=== PATIENT | male | born 2000 | race Caucasian/White ===

== ENCOUNTER 2024-04-04 06:32 | Emergency (ER) | payer OTHER, SELFPAY ==
[2024-04-04 06:44] VITALS: BP 109/64; PULSE 70; RESP 18; TEMP 36.6; O2SAT 99; BMI 25.2
--- NOTE | 2024-04-04 06:50 | ED.GENADULT ---
HPI - General Adult General Chief complaint: Back Pain/Injury Stated complaint: back pain Time Seen by Provider: 04/04/24 06:48 Source: patient, RN notes reviewed and old records reviewed Mode of arrival: ambulatory Limitations: no limitations History of Present Illness ED Provider: Howard [facility] narrative: Patient is a 24-year-old male presenting to the emergency department requesting clearance to return to work. Patient was seen elsewhere for a thoracic back strain several days ago, prescribed muscle relaxers. Patient states that since taking these medications his symptoms have fully resolved. Denies any current back pain. Denies any radiation of pain to extremities. Denies any saddle anesthesia or bowel or bladder incontinence. MD complaint: Medical clearance Associated symptoms: denies other symptoms Treatments prior to arrival: other Related Data Allergies Allergy/AdvReac Type Severity Reaction Status Date / Time No Known Allergies Allergy Verified 04/04/24 06:46 Review of Systems Review of Systems: As per HPI. Yes all other systems are reviewed and are negative Constitutional: Constitutional: Reports as per HPI Physical Exam ED Vital Signs: Vital Signs - 24 hr 04/04/24 06:44 Temperature 97.9 F Pulse Rate 70 Respiratory Rate 18 Blood Pressure 109/64 Pulse Oximetry 99 Oxygen Delivery Method Room Air BMI result Body Mass Index 25.2 Vital signs have been reviewed and appear to be correct. Blood pressure normal. Heart rate normal. Respiratory rate normal. Temperature normal. Oxygen saturation normal. Const General: cooperative, healthy appearing and no acute distress Orientation/consciousness: oriented to person, oriented to place, oriented to time and patient oriented x3 Limitations: no limitations HENMT Head: Yes normocephalic and Yes atraumatic Ears: external ears normal General nose exam: Normal external nose present Face and sinus: Yes face symmetric Mouth: oropharynx normal and moist mucous membranes Throat: Yes uvula midline Eyes Pupils: Equal, round and reactive pupils present Neck Neck: Yes normal visual inspection and Yes supple Resp Effort & Inspection: normal respiratory effort and able to speak in complete sentences Auscultation: clear to auscultation bilaterally Cardio Rate: regular rate Rhythm: regular rhythm Heart sounds: S1 normal heart sound present and S2 normal heart sound present GI Palpation (GI): Soft to palpation and nontender Auscultation: normoactive bowel sounds General: Yes no CVA tenderness Back/Spine/Pelvis Back: no CVA tenderness Thoracic/Lumbar Spine: thoracic and lumbar spine normal to inspection, thoraco-lumbar ROM normal, No pain with thoraco-lumbar ROM, No paraspinal muscle tenderness, No thoracic spinal tenderness and No lumbar spinal tenderness Skin General skin exam: elasticity normal and turgor normal Neuro General: oriented to person, oriented to place, oriented to time, patient oriented x3, moves all extremities, no focal motor deficits and CN's II-XI intact bilaterally Cranial nerves: Yes Equal, round and reactive pupils present Cognition (Neuro): normal cognition Extrem General: Yes full ROM, Yes no pedal edema and Yes no calf tenderness Psych Mental Status: mental status grossly normal Affect: normal affect Thought process: Normal thought process present Medical Decision Making Medical Decision Making [facility] Narrative: Patient is a 24-year-old male presenting to the emergency department requesting clearance to return to work. Patient was seen elsewhere for a thoracic back strain several days ago, prescribed muscle relaxers. On exam patient is awake, A+Ox3, VS WNL, afebrile, normal neurological exam without focal deficits, physical exam findings as above. Given reported symptoms and physical exam findings, initial differential includes but is not limited to fix muscle strain. Physical exam findings unremarkable and patient denies any current complaints. Feel patient is medically cleared to return to work. Patient provided with handout on core strengthening exercises to prevent further injury in the future. Follow up with PCP as needed. Return precautions discussed. Patient verbalized understanding of and agreement with plan. Differential Diagnosis Differential Diagnoses: The differential diagnosis associated with the presentation includes As per [facility] External Record Review External record reviewed: Inpatient record, Office record and Outpatient record Discharge Plan Discharge Clinical Impression: Thoracic back pain Patient Disposition: Home, Self-Care Instructions: Thoracic Back Strain (ED), Core Strengthening Exercises (ED) Additional Instructions: You were evaluated in the emergency department today for clearance to return to work after a muscle strain of your back. You can perform the attached core strengthening exercises to prevent reoccurence of injury in the future. Follow up with your primary care provider as needed. Return with any new or concerning symptoms. Stand Alone Forms: Work/School Release Print Language: Albanian
--- OUTSIDE RECORDS SUMMARY | 2024-04-04 07:02 | XMS_ITS | Clinical Summary ---
Author Organization [facility]' Address [address] [place] [id number] Phone Care Team Providers Care Mixer Attendant Name Role Phone Carmine Leung MD Primary Care Provider [phone] Allergies No known active allergies Medications albuterol HFA 108 (90 Base) MCG/ACT inhaler Inhale 90 mcg. 8 Active sertraline (Zoloft) 50 MG tabletIndicati ons:Anxiety with depression Take 0.5 tablets (25 mg total) by mouth once daily at approximately the same time each day for 7 days, THEN 1 tablet (50 mg total) once daily at approximately the same time each day. 30 tablet 2 Active Additional Information Patient not taking.Reported on 09/06/2021 hydrOXYzine 25 MG tabletIndicati ons:Anxiety with depression Take 1 tablet (25 mg total) by mouth every 8 (eight) hours as needed for anxiety. At first use 1/2 tablet to assess if any significant fatigue. 30 tablet 2 Active hydrOXYzine 25 MG tabletIndicati ons:Anxiety with depression Take 1/2 to 1 tablet every 12 hours as needed for anxiety as directed.May cause some fatigue. 30 tablet 2 Active Active Problems Problem Noted Date Diagnosed Date Anxiety with depression 08/15/2021 Assessment & Plan (09/06/2021 9:00 AM EDT): Depression and/or Anxiety STOP sertraline due to feelings that he felt a bit worse on this medication. Wants to see Leeanne Reddy for therapy and NOT be on a daily medication at this time. Will wait and see and schedule overdue WCC in the Fall. Follow up sooner prn. RX sent in for prn hydroxyzine for anxiousness spells or panic attacks. Discussed possible sedation. Readily contracts for safety Discussed and call if concerns develop. [phone] ADVISE regular exercise, good sleep patterns, avoid drugs and alcohol CONTINUE counseling as discussed if appropriate CALL us if concerns of worsening symptoms IF CONSIDERING SUICIDE OR SELF HARM --PLEASE DON'T HURT YOURSELF AND CALL/TEXT THE FOLLOWING: CRISIS NUMBER SUICIDE PREVENTION HOTLINE NUMBER TEXT HOTLINE text-----[id number] SUICIDE/SAMARITANS PREVENTION TEXT NUMBER Assessment & Plan (08/17/2021 5:22 PM EDT): Discussed in detail. Ongoing anxiety with depressive features. START medication and discussed and prescribed, take medication(s) as directed and don't stop medication without consulting your provider Sertraline 25 mg daily x 7 then 50 mg after that. Appt w office therapist Leeanne in a few weeks. Recheck w GN 09/06/21, sooner if needed. Relaxation techniques, Headspace dianne, and BETTER SLEEP : )--also discussed in detail. DISCUSSED IN DETAIL, medications, possible side effects, black box warning ADVISE regular exercise, good sleep patterns, avoid drugs and alcohol CONTINUE counseling as discussed if appropriate CALL us if concerns of worsening symptoms CRISIS NUMBER SUICIDE PREVENTION HOTLINE NUMBER Other acne 11/21/2018 Assessment & Plan (11/21/2018 9:06 AM EDT): Acne- mostly on back Advised using OTC Benzoyl Peroxide Soap, lather upper back with pad or brush in shower, leave on 3-5 minutes and rinse- use daily. Mild intermittent asthma, uncomplicated 11/26/19 17 Overview (12/01/2017): Exercise Induced Asthma (493.00) Onset: 11/25/2016 Added by: Deandra Parada Assessment & Plan (11/21/2018 9:07 AM EDT): No albuterol use in over a year - call if albuterol inhale is outdated Encounters Date Type Department Care Team Description 01/25/2024 Telephone Pediatric And Adolescent Medicine - [address] [place] [address] Sana Morales MA Transition Of Care from Last 3 Months Immunizations Name Administration Dates Next Due DTaP 5 08/10/2006, 3,2001,06/24,2001 H1N1 Inj 02/26/2009,01/02/2009 HPV Vaccine 9 Valent 12/03/2015,01/29/2015,11/27 Hep A, ped/adol 12/03/2015,11/27/2014 Hep B, ped/adol 2001,2001,2001 Hib (PRP-T) 08/21/2002, 3,2001,05/02 IPV 08/10/2006, 3,2001,05/05 Influenza, injectable, quadr ivalent, preservative free 03/19/2021,11/21/2018,12/02/2017,02/15,12/03/2015,11/27/2014,11/21/2013 Influenza, injectable, trivalent 02/16/2013 Influenza, injectable, triva lent, preservative free 03/29/2012 MMR 08/10/2006,05/08/2002 Meningococcal B Trumenba 11/21/2018 Meningococcal Conj (Menactra) MCV4P 12/02/2017,0 11/21/2013 Pneumococcal Conjugate 2001,2001, Tdap 11/21/2013 Varicella 12/01/2013,06/12/2002 Family History Medical History Relation Name Comments Hyperlipidemia Brother Hyperlipidemia Father Hypertension Father Hypertension Maternal Grandfather Seizures Mother Breast cancer Paternal Grandmother Hyperlipidemia Paternal Grandmother Hypertension Paternal Grandmother Relation Name Status Comments Brother Father Maternal Grandfather Mother Paternal Grandmother Social History Tobacco Use Types Packs/Day Years Used Date Smoking Tobacco: Never Smokeless Tobacco: Never Hunger/Food Answer Date Recorded In the last 12 months, did y ou or your family ever eat less than you felt you should because there wasn't enough money for food? No 11/21/2018 Stable Housing Answer Date Recorded Are you worried that in the next 2 months you may not have stable housing? No 11/21/2018 Transportation Concerns Answer Date Rec orded In the last 12 months, have you or your family ever had to go without healthcare because you didn't have a way to get there? No 11/21/2018 Hazards in Home Answer Date Recorded Think about the place you li ve. Do you have problems with any of the following? Pests (mice or roaches), mold, no/not working smoke detectors, water leaks, no window guards. No 2018 Financing Utilities Answer Date Recorde d In the last 12 months, has t he electric, gas, oil, or water company threatened to shut off your services in your home? No 11/21/2018 Safety at Home Answer Date Recorded Are you or your family worried about feeling saf e in your home? No 11/21/2018 Outside Support Answer Date Recorded Do you feel that you need mo re support from other people or programs to help you care for yourself or your family? No 11/21/2018 Understanding Health Concerns Answer Da te Recorded Do you need help understandi ng your or your child's healthcare needs (diagnosis, medications, plan, etc.)? No 11/21/2018 Financing Health Concerns Answer Date R ecorded In the last 12 months, was t here a time when your child needed to see a doctor or get medications or supplies but could not because of cost? No 11/21/2018 Missing School or Work Answer Date Nawaf rded Did you or your child miss s chool or work because of a health problem that could have been avoided? No 11/21/2018 Sex and Gender Information Value Date Recorded Sex Assigned at Not on file Legal Sex Male 6:16 PM EDT Gender Identity Not on file Sexual Orientation Straight 11/21/2018 9: 07 AM EDT Last Filed Vital Signs Vital Sign Reading Time Taken Comments Blood Pressure 116/68 09/06/2021 8:30 AM EDT Pulse 74 09/06/2021 8:30 AM EDT Temperature 36.9 ??C (98.4 ??F) 09/06/2021 8:30 AM ED T Respiratory Rate 16 09/06/2021 8:30 AM EDT Oxygen Saturation 97% 09/06/2021 8:30 AM EDT Inhaled Oxygen Concentration - - Weight 62.1 kg (136 lb 12.8 oz) 09/06/2021 8:30 AM EDT Height 165.1 cm (5' 5 ) 08/15/2021 10:3 1 AM EDT Body Mass Index 22.76 08/15/2021 10:31 AM EDT Plan of Treatment Health Maintenance Due Date Last Done Comments Men B Vaccine (2 of 2 - Trumenba SCDM 2-dose series) 05/22/2019 11/21/2018 Influenza Vaccines (#1) 2023 03/19/19, 11/21/2018, 12/02/2017, Additional history exists COVID-19 Vaccine ( season) 2023 03/19/2021, 07/12/2020, 06/14/2020 DTaP,Tdap,and Td Vaccines (7 - Td or Tdap) 11/22/2023 11/21/2013, 08/10/2006, 08/21/2002, Additional history exists Pneumococcal Vaccine Aged Out 2001, 2001, 2001 No longer eligible based on patient's age to complete this topic Hepatitis B Vaccines Completed 2001, 2001, 2001 HIB Vaccines Completed 08/21/2002, 05/2002, 2001, Additional history exists IPV Vaccines Completed 08/10/2006, 08/06, 2001, Additional history exists MMR Vaccines Completed 08/10/2006, 05/08/2002 Varicella Vaccines Completed 12/01/2013, 06/12/2002 HPV Vaccines Completed 12/03/2015, 01/07, 11/27/2014 Hepatitis A Vaccines Completed 12/03/2015, 11/28/19 15 Meningococcal Vaccine Completed 12/02/2017, 014 Insurance [facility] [address] [place] [id number] [facility] [address] [place] [address] Care Teams Mixer Attendant Relationship Specialty [place] [address] [place] [address] [place] [address] PCP - General Pediatrics 01/24/19
--- OUTSIDE RECORDS SUMMARY | 2024-04-04 07:02 | XMS_ITS | Clinical Summary ---
Author Organization [facility] [employer] [facility] Address [address] [place] [address] Care Team Providers Care Architectural Sales Consultant Name Role Phone Pcp, No Primary Care Provider [phone] Social History Tobacco Use Types Packs/Day Years Used Date Smoking Tobacco: Never Assessed Sex and Gender Information Value Date Recorded Sex Assigned at Not on file Legal Sex Male 9:28 AM EST Gender Identity Not on file Sexual Orientation Not on file Plan of Treatment Health Maintenance Due Date Last Done Comments Depression: Screening Annual ly using PHQ-2/9 in Adults 18 yrs or above (or HM Modifier)([facility]) 2019 Hepatitis C Virus Infection in Adolescents and Adults: Screening (or Modifier) ([facility]) 2019 SDOH Screening Reminder: Yessy ually for all adults ([facility]) 2019 Tobacco Smoking Cessation: i n Adults excluding Women: Behavioral and Pharmacotherapy Interventions ([facility]) 2019 DTaP/Tdap/Td Vaccines ([facility]) (1 - Tdap) 02/24/2020 Lipid Screening: Once for Me n aged 20 to 35 yrs ([facility]) 2021 Flu Vaccination: Yearly for ages 18mos through 64 years (or Modifier)([facility]) 10/07/2023 COVID-19 Vaccine Screening: Initial Series and Booster Status ([facility]) ( - 2023- season) 2023 Zoster/Shingles Vaccine Seri es Screening: Adults aged 18+ yrs (or HM Modifiers)([facility]) (1 of 2) 2051 Pneumococcal Vaccination Scr eening: Pts 0-19 & 19-64 yrs of age ([facility]) Aged Out No longer eligible based on patient's age to complete this topic Medical Devices Not on file [place] [id number] Care Teams Architectural Sales Consultant Relationship Specialty Start Date End Date Pcp, No PCP - General Family Medicine 02/24/20
--- OUTSIDE RECORDS SUMMARY | 2024-04-04 07:02 | XMS_ITS | Encounter Summary ---
Author Organization [facility] Address [address] [place] [address] Phone Care Team Providers Care Pig Farm Manager Name Role Phone Carmine Leung MD Primary Care Provider [phone] Reason for Visit * Reason Comments Med Refill Encounter Details Date Type Department Care Team (Late st Contact Info) Description 09/11/2021 Refill Pediatric And Adolescent Medicine - [address] [place] [address] [place] [address] [place] [address] [place] [address] Anxiety with depression Social History Tobacco Use Types Packs/Day Years [...] Orientation Straight 11/21/2018 9: 07 AM EDT documented as of this encounter Plan of Treatment Not on file documented as of this encounter Visit Diagnoses Diagnosis Anxiety with depression documented in this encounter Care Teams Pig Farm Manager Relationship Specialty Start Date End Date Carmine Leung MD [address] [facility] [place] [address] PCP - General Pediatrics 01/24/19 documented as of this encounter
--- OUTSIDE RECORDS SUMMARY | 2024-04-04 07:02 | XMS_ITS | Encounter Summary ---
Author Organization [facility] Address [address] [place] [phone] Phone Care Team Providers Care Asphalt Heater Tender Name Role Phone Carmine Leung MD Primary Care Provider [phone] Encounter Details Date Type Department Care Team (Late st Contact Info) Description 01/19/2012 Conversion Encounter Pediatric [facility] Adolescent Medicine - [place] [address] [place] [address] Social History Tobacco Use Types Packs/Day Years Used Date Smoking Tobacco: Never Assessed Sex and Gender Information Value Date Recorded Sex Assigned at Not on file Legal Sex Male 6:16 PM EDT Gender Identity Not on file Sexual Orientation Straight 11/21/2018 9: 07 AM EDT documented as of this encounter Plan of Treatment Not on file documented as of this encounter Visit Diagnoses Not on filedocumented in this encounter Care Teams Asphalt Heater Tender Relationship Specialty Start Date End Date Carmine Leung MD [address] [place] [address] PCP - General Pediatrics 01/24/19 documented as of this encounter
== END 2024-04-04 07:05 | disposition home or self-care (01) ==
PROVIDERS: Emergency Provider Emergency Medicine
DX: M54.6 Pain in thoracic spine (principal); Z02.79 Encounter for issue of other medical certificate
CPT/HCPCS: 99281

== ENCOUNTER 2024-06-03 13:11 | Emergency (ER) | payer OTHER, SELFPAY ==
[2024-06-03 13:17] VITALS: BP 117/41; PULSE 85; RESP 18; TEMP 36.3; O2SAT 95; BMI 24.2
--- NOTE | 2024-06-03 13:21 | ED.GENADULT ---
HPI - General Adult General Chief complaint: Wound/Laceration Stated complaint: EYE INJ AT WORK Time Seen by Provider: 06/03/24 14:38 Source: patient Mode of arrival: ambulatory Limitations: no limitations History of Present Illness ED Provider: JONNY LOUISE PA-C HPI narrative: 24 year old healthy male presents to the ED today for evaluation after walking into a cabinet while at work. Reports striking the right side of his head on a metal cabinet. Has a laceration to his right eye brow. He denies LOC. Not on thinners. No active bleeding noted to laceration on arrival. Denies any pain on eye movement. Denies FB sensation to eye. Denies headache. Has no complaints at present. He does not believe his tetanus is up to date. Related Data Allergies Allergy/AdvReac Type Severity Reaction Status Date / Time No Known Allergies Allergy Verified 06/03/24 13:20 Review of Systems Review of Systems: Yes all other systems are reviewed and are negative [facility] Past Medical History Attestation statement: The following information was validated with the patient. Source: old records reviewed and nursing notes reviewed Social History Social History Advance Directives: No Advance Directives Information Provided: No Physical Exam ED Vital Signs: Vital Signs - 24 hr 06/03/24 13:17 Temperature 97.3 F Pulse Rate 85 Respiratory Rate 18 Blood Pressure 117/41 L Pulse Oximetry 95 Oxygen Delivery Method Room Air BMI result Body Mass Index 24.2 vital signs stable Const General: cooperative, healthy appearing, comfortable and no acute distress Orientation/consciousness: patient oriented x3 Limitations: no limitations HENNY Head: Yes normal to inspection, Yes No palpable skull fracture present, Yes normocephalic and Yes atraumatic Face images: 1. +3 cm linear superficial laceration noted to right eyebrow. no involvement of deeper structures. no actively bleeding. no FB. Eyes General: appearance normal, both eyes and all related structures Pupils: Equal, round and reactive pupils present EOM: EOMs intact bilaterally Neck Other: no midline tenderness Neck: Yes normal visual inspection and Yes full ROM Resp Effort & Inspection: normal respiratory effort and able to speak in complete sentences Auscultation: clear to auscultation bilaterally Cardio Rate: regular rate Rhythm: regular rhythm Skin Other: see above Neuro General: patient oriented x3 Cranial nerves: Yes Equal, round and reactive pupils present Course Course Course Narrative: Medical screening exam performed. Please refer to detailed history, exam, evaluation, and management by primary provider. 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 Up-to-date on tetanus. Minor lacerations of the right eye. No eye pain. Limited cleaning at triage. Reevaluation(s) Reevaluation #1: tdap updated. minor superficial laceration to left eyebrow. no sutures warranted. irrigated/ cleansed laceration w/ iodine and saline. no fb noted. repaired with dermabond. patient tolerated well. Patient has remained stable throughout ED visit today. Discussed worrisome signs and symptoms and when to return to the ED. All questions answered at this time. Patient is agreeable with disposition and stable for discharge. Medical Decision Making Medical Decision Making [facility] Narrative: 24 year old healthy male presents to the ED today for evaluation after walking into a cabinet while at work. Vital signs stable. He is nontoxic-appearing and in no acute distress. On exam, there is a 3 cm linear superficial laceration noted to right eyebrow. no involvement of deeper structures. no actively bleeding. no FB. EOMs are intact without entrapment or pain. You would like no obvious corneal abrasion, laceration or foreign body. Patient does not endorse foreign body sensation. No eye pain. No septal hematoma. No palpable skull fracture or hematoma. Differential diagnosis includes abrasion, laceration. Unlikely corneal abrasion, ulceration, retained foreign body, orbital bone or facial fracture. Per [place] CT rules, no CT imaging warranted at this time. Will repair laceration with Dermabond after cleansing. Will update Tdap. Differential Diagnosis Differential Diagnoses: The differential diagnosis associated with the presentation includes as above. Admission/Observation not indicated Social Determinants Patient?s care significantly limited by Social Determinants of Health including: Other Social Determinant of Health Critical Care Time Critical Care Time Critical Care Time: No Discharge Plan Discharge Clinical Impression: Laceration Patient Disposition: Home, Self-Care Instructions: Skin Adhesive Care (ED) Additional Instructions: You have been evaluated in the Emergency Department today for a laceration to your right eyebrow. Your laceration was repaired in the ED with skin adhesive. Your tetanus vaccination was also updated and will be valid for 5-10 years. Please keep the area surrounding the laceration clean and dry. Do not get the area wet for 24 hours. After 24 hours, you may clean the area with a nonscented soap and pat to dry. Please keep the area out of the sunlight for the next 6 months to help prevent scarring.? If you develop redness or swelling at the site of your laceration or note any discharge/ fluid coming from the laceration, please come back to the ER for a wound check. I recommend you take 600mg ibuprofen every 6 hours or tylenol 650mg every 6 hours as needed for pain. If needed, you can alternate these medications so that you take one medication every 3 hours. For example, at noon take ibuprofen, then at 3pm take tylenol, then at 6pm take ibuprofen. Return to the Emergency Department if you experience discharge from your laceration, redness around your laceration, warmth around your laceration, fever, vomiting, numbness, tingling, or any other concerning symptoms. In the case of an emergency call 911. Since this was a work related injury, I have provided you with contact information for the work connection. Referrals: Work Connection [Outside] Print Language: Sami
[2024-06-03 15:00] VITALS: BP 117/67; PULSE 70; RESP 18; TEMP 37; O2SAT 98
[2024-06-03] MEDS: Diphth,Pertus(ACell),Tet Adult 0.5 ML SYRINGE IM (15:09)
[2024-06-03 15:16] VITALS: BP 117/67; PULSE 70; RESP 18; TEMP 37; O2SAT 98
== END 2024-06-03 15:16 | disposition home or self-care (01) ==
PROVIDERS: Emergency Provider Internal Medicine
DX: S01.111A Laceration without foreign body of right eyelid and periocular area, initial encounter (principal); H57.11 Ocular pain, right eye; W26.9XXA Contact with unspecified sharp object(s), initial encounter; Y93.9 Activity, unspecified; Y92.9 Unspecified place or not applicable; Y99.0 Civilian activity done for income or pay; Z23 Encounter for immunization
CPT/HCPCS: G0168; 12013; 90471; 90715; 99283; 99284